=== PATIENT | female | born 1945 | race Caucasian/White ===

== ENCOUNTER 2018-05-21 14:36 | Outpatient (CLI) | payer MEDICARE, BC ==
--- NOTE | 2018-05-21 16:49 | BD ---
BONE DENSITOMETRY: 05/21/18 INDICATIONS: 72-year-old female for postmenopausal osteoporosis screening. Lumbar Spine: BMD (g/cm2) L1 0.805 T-Score: -1.7 L2 0.924 T-Score: -0.9 L3 0.855 T-Score: -2.1 L4 0.857 T-Score: -1.9 L1-L4 0.865 T-Score: -1.7 Femoral Neck: 0.649 T-Score: -1.8 Total Femur: 0.887 T-Score: -0.4 Impression: Bone mineral density of the lumbar spine and femoral neck both indicate osteopenia. Ten year fracture risk: Major osteoporotic fracture: 19%. Hip fracture: 9.8%. POS: [facility]
== END 2018-05-21 14:37 | disposition home or self-care (01) ==
LOC: BICMAMMO 14:36
PROVIDERS: ATTEND Obstetrics & Gynecology
DX: Z12.31 Encounter for screening mammogram for malignant neoplasm of breast (principal); Z13.820 Encounter for screening for osteoporosis; M85.89 Other specified disorders of bone density and structure, multiple sites; Z80.3 Family history of malignant neoplasm of breast
CPT/HCPCS: 77063; 77067; 77080

== ENCOUNTER 2019-11-18 08:14 | Outpatient (CLI) | payer MEDICARE, BC ==
--- NOTE | 2019-11-18 15:31 | NM ---
NUCLEAR MEDICINE HIDA SCAN WITH DRU11/18/19 HISTORY: Constipation unspecified. COMPARISON: Reference made to CT 08/14/19. FINDINGS: Imaging of the abdomen is performed after the intravenous administration of 5.4 millicuries technetiu m 99m Mebrofenin intravenously. Adequate hepatic uptake of radiotracer. The common bile duct is seen quickly. It takes over one hour for the gallbladder to be visualized. The small bowel is seen within 40 minutes. The calculated ejection fraction is 40%. This was calculated after oral administration of 8 oz of Ens ure 1.25 hours after injection of radiotracer. IMPRESSION: 1. Normal patent cystic and common bile ducts. 2. Normal gallbladder ejection fraction of 40%. POS: HOME
== END 2019-11-18 08:15 | disposition home or self-care (01) ==
LOC: NM 08:14
PROVIDERS: ATTEND Internal Medicine Gastroenterology
DX: K59.00 Constipation, unspecified (principal); M54.5 Low back pain; Z80.0 Family history of malignant neoplasm of digestive organs
CPT/HCPCS: 78227; A9537

== ENCOUNTER 2019-12-04 08:22 | Outpatient (CLI) | payer MEDICARE, BC ==
--- NOTE | 2019-12-04 09:39 | RAD ---
UPPER GI: HISTORY: Pain. Large hiatal hernia. COMPARISON: None. FINDINGS: The thoracic esophagus is overall normal course and caliber. No mucosal abnormality. No evidence of a large hiatal hernia. However, there is intermittent reflux during fluoroscopy. Visualized gastric mucosa, duodenum and proximal small bowel loops have an overall normal mucosal gigi earance. No mucosal abnormality. No extrinsic abnormality. IMPRESSION: 1. No evidence of a large hiatal hernia. 2. Significant intermittent reflux during fluoroscopy. Transcribed Date/Time: 12/04/2019 10:11 AM
== END 2019-12-04 08:23 | disposition home or self-care (01) ==
LOC: RAD 08:22
PROVIDERS: ATTEND Internal Medicine Gastroenterology
DX: K44.9 Diaphragmatic hernia without obstruction or gangrene (principal); M54.5 Low back pain
CPT/HCPCS: 74246

== ENCOUNTER 2021-07-26 10:51 | Outpatient (CLI) | payer MEDICARE, BC ==
[2021-07-26 11:54] LABS: Hemoglobin 15.1 g/dL (12.0-15.5); Mean Corpuscular HGB CONC 33.3 g/dL (32.0-36.0); Mean Corpuscular Hemoglobin 34.5 pg (27.0-33.0); Mean Corpuscular Volume 103.7 fl (81.6-98.3); Mean Platelet Volume 9.1 fl (7.4-10.4); Platelet Count 221 10x3/uL (150-450); RBC Distribution Width 11.8 % (11.5-14.5); Red Blood Cell (RBC) Count 4.38 10x6/uL (3.90-5.03); White Blood Cell (WBC) Count 6.3 10x3/uL (3.5-10.5)
[2021-07-26 12:09] LABS: PTT 26.7 sec (22.0-33.0); Prothrombin Time 10.6 sec (9.5-12.1)
[2021-07-26 12:12] LABS: Anion Gap 10 mmol/L (10-20); BUN (Urea Nitrogen) 16 mg/dL (9.8-20.1); Calc. Creatinine Clearance 0 mL/min (70-130); Calcium 9.5 mg/dL (7.8-10.44); Carbon Dioxide 29 mmol/L (23-31); Chloride 106 mmol/L (98-107); Glucose 78 mg/dL (83-110); Potassium 4.1 mmol/L (3.5-5.1); Sodium 141 mmol/L (136-145)
[2021-07-26 21:44] LABS: SARS-CoV-2 PCR by NAA Not Detected (NotDetected)
== END 2021-07-26 10:52 | disposition home or self-care (01) ==
LOC: LABBT 10:51
PROVIDERS: ATTEND Internal Medicine Cardiovascular Disease
DX: Z01.812 Encounter for preprocedural laboratory examination (principal); Z20.822 Contact with and (suspected) exposure to COVID-19
CPT/HCPCS: 80048; 85027; 85610; 85730; U0003; U0005

== ENCOUNTER 2021-07-31 08:48 | Day surgery (SDC) | payer MEDICARE, BC ==
[2021-07-21 11:50] VITALS: BMI 21.2
[2021-07-31] MEDS ORDERED: Lidocaine 1% (PF) 30 ML VIAL ONE (09:10)
[2021-07-31] MEDS ORDERED: Isoproterenol 0.2 MG/1 ML AMP ONE (09:10)
[2021-07-31] MEDS ORDERED: Heparin 10,000 UNITS/ 10 ML VIAL ONE (09:10)
[2021-07-31] MEDS ORDERED: Heparin 25,000 units/D5W 0 ML ONE (11:59)
[2021-07-31] MEDS ORDERED: DOPamine 400 MG/D5W 250 ML 0 ML ONE (11:59)
[2021-07-31] MEDS ORDERED: Fentanyl 100 MCG/2 ML VIAL ONE ×2 (12:04→13:56)
[2021-07-31] MEDS ORDERED: PROPOFOL 200 MG/20 ML VIAL ONE (12:20)
[2021-07-31] MEDS ORDERED: Dexamethasone 20 MG/5 ML VIAL ONE (12:20)
[2021-07-31] MEDS ORDERED: Rocuronium Bromide 10 MG/ML (10ML VIAL) ONE (12:20)
[2021-07-31] MEDS ORDERED: Lidocaine 1% PF 5 ML VIAL ONE (12:20)
[2021-07-31] MEDS ORDERED: ePHEDrine 50 MG/ML VIAL ONE (12:20)
[2021-07-31] MEDS ORDERED: PHENYLEPHRINE-NS 100 MCG/ML 10 ML SYRINGE ONE (12:20)
[2021-07-31] MEDS ORDERED: Glycopyrrolate 0.2 MG/ML 5 ML SYRINGE ONE (12:20)
[2021-07-31] MEDS ORDERED: Ondansetron PF 4 MG/2 ML Vial ONE (12:20)
== END 2021-07-31 19:15 | disposition home or self-care (01) ==
LOC: SDC 08:48
PROVIDERS: ATTEND Internal Medicine Cardiovascular Disease
PROC: 5A2204Z Restoration of Cardiac Rhythm, Single (ICD-10-PCS; principal; 2021-07-31)
PROC: 02583ZZ Destruction of Conduction Mechanism, Percutaneous Approach (ICD-10-PCS; 2021-07-31)
PROC: 02K83ZZ Map Conduction Mechanism, Percutaneous Approach (ICD-10-PCS; 2021-07-31)
PROC: 4A023FZ Measurement of Cardiac Rhythm, Percutaneous Approach (ICD-10-PCS; 2021-07-31)
PROC: 4A0234Z Measurement of Cardiac Electrical Activity, Percutaneous Approach (ICD-10-PCS; 2021-07-31)
DX: I47.1 Supraventricular tachycardia (principal); I48.3 Typical atrial flutter; I48.91 Unspecified atrial fibrillation; Z79.899 Other long term (current) drug therapy
CPT/HCPCS: 93005; 93613; 93621; 93623; 93653; C1730; C1732; C1776; J1100; J1265; J1644; J2001; J2405; J2704; J3010; J3490